=== PATIENT | male | born 1955 | race Caucasian/White ===

== ENCOUNTER 2019-01-26 23:46 | Inpatient (IN) | payer OTHER ==
[~2019-01-26] VITALS: Ht 170.2 cm; Wt 79.0 kg
[2019-01-27 02:05] VITALS: Ht 170.2 cm; Wt 79.0 kg
[2019-01-27 02:21] VITALS: BP 139/81; PULSE 112; RESP 19
[2019-01-27] MEDS ORDERED: CEFTRIAXONE 1 GM/50 ML (PMX) 50 ML IVPB SCH (02:30)
[2019-01-27] MEDS ORDERED: NACL 0.9% 3 ML SYG IV SCH (02:30)
[2019-01-27] MEDS ORDERED: ONDANSETRON (ODT) 4 MG TAB ODT PRN (03:00)
[2019-01-27] MEDS: ACETAMINOPHEN 325 MG TAB PO PRN ×2 (03:04→16:57)
[2019-01-27 07:44] VITALS: BP 144/88; PULSE 111; RESP 18
[2019-01-27] MEDS: FAMOTIDINE 20 MG TAB PO SCH ×2 (09:30→20:00)
[2019-01-27] MEDS: DOCUSATE SODIUM 100 MG CAP PO SCH ×2 (09:30→20:00)
[2019-01-27] MEDS: ENOXAPARIN 40 MG/0.4 ML SYG SC SCH (09:32)
[2019-01-27] MEDS ORDERED: NACL 3% FOR INHALATION 15 ML NEBU NEB ONE (13:30)
--- NOTE | 2019-01-27 13:45 | HP ---
DATE OF ADMISSION: 01/27/2019 CHIEF COMPLAINT: Fevers. HISTORY OF PRESENT ILLNESS: A 63-year-old male was transferred from [facility] Emergency [facility] om after he presented with complaint of persistent on and off fevers for 3 weeks. The patient christian busby was seen at [facility] and underwent a thorough workup several weeks prior to admi ssion. No source of infection was identified. He then saw his primary care provider and was diagnos ed with otitis. The patient was prescribed Augmentin. He experienced abdominal discomfort associate d with nausea. At [place] [facility], abdominal pelvic CT was unremarkable. However, the lung portion of the CAT scan sh owed right upper lobe atelectasis, dense infiltrates and hilar lymphadenopathy. There were no cavita ry lesions. The patient has travel history to [place] recently. He denies any weight loss. He rep orts mild cough which is nonproductive. His maximum temperature was 102.1. Labs revealed white bloo d cell count of 12.1. Basic metabolic panel was unremarkable. PAST MEDICAL HISTORY: Unremarkable. MEDICATIONS PRIOR TO ADMISSION: Augmentin. SOCIAL HISTORY: The patient lives at home. He denies tobacco and drinks alcohol on social occasions . PHYSICAL EXAMINATION: GENERAL: Well-developed, well-nourished male who is in no apparent distress. VITAL SIGNS: Blood pressure 144/88, temperature 99.5, maximum temperature 102.1, pulse 111. HEENT: Extraocular muscles are intact. Pupils are equal and reactive to light bilaterally. Sclerae are anicteric. Oropharynx is clear and moist. NECK: Supple. No JVD, no carotid bruits. LUNGS: Clear to auscultation bilaterally. CARDIAC: Regular rate and rhythm. No murmurs, rubs or gallops. ABDOMEN: Soft, nontender, nondistended, normoactive bowel sounds. EXTREMITIES: No clubbing, cyanosis or edema. NEUROLOGICAL: Grossly nonfocal. ASSESSMENT: 1. A 63-year-old male with history of on and off fevers for 3 weeks. 2. Right upper lobe dense infiltrate with hilar lymphadenopathy. 3. Rule out underlying lung mass with possible postoperative pneumonia. PLAN: 1. Place in med/surg observation. 2. Change to IV Levaquin 750 mg daily. 3. Pulmonary and ID consultations were requested. Dictated By: JOSE TENORIO/NTS Conf#: [id number] DID#: [id number] CC: PETER HINOJOSA MD; JOE MENDOZA MD;*[facility]*
[2019-01-27 14:00] VITALS: BP 124/74; PULSE 121; RESP 18
[2019-01-27] MEDS: SOD CHLORIDE 0.9% 1,000 ML IV SCH ×2 (14:24→22:00)
--- NOTE | 2019-01-27 14:26 | CONS ---
DATE OF ADMISSION: 01/27/2019 DATE OF CONSULTATION: TYPE OF CONSULTATION: Pulmonary. REASON FOR CONSULT: Abnormal chest x-ray. HISTORY OF PRESENT ILLNESS: This is a 63-year-old gentleman who has had a 3 to 4-week history of fev er, chills, cough, presented to outside facility where he had a CT of the chest demonstrated dense ri ght upper lobe infiltrate with lymphadenopathy. The patient denies any hemoptysis. No nausea, no vo miting. Denies any weight loss; however has had a significant travel history to various states and a broad to [place]. He works with service as an actor. He has a remote tobacco history, quit smoking 15 years ago. Prior to that, smoked 3 to 5 cigarettes per day. PAST MEDICAL HISTORY: As above. MEDICATIONS: Per chart. ALLERGIES: NONE. SOCIAL HISTORY: Ex-smoker, no alcohol, no history of drug use. FAMILY HISTORY: Noncontributory. SYSTEMS REVIEW: A 12-point review of systems was negative other than that mentioned above. PHYSICAL EXAMINATION: GENERAL: Well-nourished, well-developed gentleman, appears comfortable at rest, in no acute distress . VITAL SIGNS: Currently afebrile, pulse is 110, blood pressure 144/88, T-max was 102.1. NECK: Supple. No JVD or lymphadenopathy. CARDIAC: S1, S2. No added sounds or murmurs. CHEST: Diminished air entry in both bases. ABDOMEN: Soft, nontender. No guarding or rebound. EXTREMITIES: No cyanosis, clubbing. A 1+ edema. NEUROLOGIC: Generalized weakness. LABORATORY DATA: White count 12.1, hemoglobin 12.4, platelets of 383. BUN 13, creatinine 1.13. IMPRESSION AND PLAN: Three-week history of fever, chills and cough with dense right upper lobe infil trate concerning for either complex or atypical right upper lobe community-acquired pneumonia and/or mycobacterial tuberculosis. Differential does include adenocarcinoma, specifically bronchoalveolar. I will recommend: 1. Sputum AFB x3. 2. High resolution CT scan. 3. QuantiFERON Gold. 4. Broad-spectrum antibiotics. 5. DVT and GI prophylaxis. 6. If no improvement, we will require bronchoscopy with biopsies. Dictated By: JOE GIORDANO/TASH Conf#: [id number] DID#: [id number] CC: PETER HINOJOSA MD;*[facility]*
[2019-01-27] MEDS: LEVOFLOXACIN 750MG/D5W (PMX) 150 ML IVPB SCH (14:31)
[2019-01-27] MEDS ORDERED: SOD CHLORIDE 0.9% 1,000 ML IV ONE (18:00)
--- NOTE | 2019-01-27 19:06 | CONS ---
DATE OF ADMISSION: 01/27/2019 DATE OF CONSULTATION: 01/27/2019 TYPE OF CONSULTATION: Infectious disease. REASON FOR CONSULTATION: Antibiotic management. HISTORY OF PRESENT ILLNESS: Leo Sosa is a 63-year-old male who was transferred from [facility] Emergency Room where he presented with persistent intermittent fevers for the last 3 weeks. The patient was seen at [facility] several weeks prior to admission. He was diagnosed by [facility] primary doctor with otitis, was prescribed Augmentin. At [facility], an abdominal pelvic CT was done; however, the lung portion of the CT scan showed right upper lobe atelectasis with dense infilt ration and hilar lymphadenopathy. There were no cavitary lesions. He has had a travel history to [facility] recently. Maximum temperature was 102.1. White count was 12.1. The patient was also seen by Dr. Campos. He notes that he had a significant travel history to various states ____ to [place]. 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 He does not smoke but 15 years ago when he quit was smoki ng 3 to 5 cigarettes per day. PAST MEDICAL HISTORY: Operations none. FAMILY HISTORY: Noncontributory. SOCIAL HISTORY: Does not smoke, drink or abuse drugs. ALLERGIES: NONE TO PENICILLIN, SULFA OR FOODS. MEDICATIONS: Per chart. REVIEW OF SYSTEMS: As per HPI. PHYSICAL EXAMINATION: GENERAL: The patient is a well-developed, well-nourished male, alert, responsive, in no acute distre ss. VITAL SIGNS: Stable. T-max 102.1. SKIN: Without generalized rash. HEENT: Within normal limits. NECK: Supple. LYMPH NODES: None palpable. CHEST: Decreased breath sounds at the bases. HEART: Without murmur or gallop. ABDOMEN: Soft, nontender, without organosplenomegaly or masses. EXTREMITIES: Without cyanosis, clubbing, or edema. RECTAL AND GENITAL: Deferred. NEUROLOGIC: No focal neurological abnormalities. ANCILLARY LABORATORY DATA: Shows a white count of 12.1, hemoglobin 12.4, platelets 383,000. BUN and creatinine 13/1.3. As noted, the CT scan showed dense right upper lobe infiltrate with lymphadenopa thy. Differential includes either an atypical right upper lobe community-acquired pneumonia, possibly myco bacterial infection, possible adenocarcinoma. The patient requires QuantiFERON Gold serology, sputum for AFB x3, a high resolution CT scan, all of which have been ordered. Also placed on broad spectru m antibiotics. If no improvement, then bronchoscopy would be in order. The patient was started at t his point on Levaquin. He did receive some ceftriaxone. We will continue Levaquin for the time lubna campbell, but I will consider broadening his antibiotic therapy, possibly putting him on Zosyn or possibly c efepime. I will dictate my findings to ____ and Dr. Campos. Dictated By: ELDON CAMARA MD, JD/TASH Conf#: [id number] DID#: [id number]
[2019-01-27 20:00] VITALS: BP 92/75; PULSE 96; RESP 18
[2019-01-27 21:35] VITALS: BP 103/66; PULSE 86
[2019-01-28] MEDS: ACETAMINOPHEN 325 MG TAB PO PRN ×3 (01:53→23:15)
[2019-01-28 01:56] VITALS: BP 135/87; PULSE 111; RESP 22
[2019-01-28] MEDS: SOD CHLORIDE 0.9% 1,000 ML IV SCH ×2 (05:25→17:03)
[2019-01-28 07:23] VITALS: BP 127/93; PULSE 94; RESP 20
[2019-01-28] MEDS: FAMOTIDINE 20 MG TAB PO SCH ×2 (08:46→20:07)
[2019-01-28] MEDS: DOCUSATE SODIUM 100 MG CAP PO SCH ×2 (08:46→20:07)
[2019-01-28] MEDS: ENOXAPARIN 40 MG/0.4 ML SYG SC SCH (08:52)
--- NOTE | 2019-01-28 08:57 | PN ---
Date/Time of Note Date/Time of Note DATE: 01/28/19 TIME: 08:51 Subjective Doing well. No complaints of chest pain or shortness of breath. Mild cough Objective Vitals Vital Signs Date Temp Pulse Resp B/P (MAP) Pulse Ox O2 O2 Flow FiO2 Time Delivery Rate 01/28/19 98.8 94 20 127/93 96 Room Air 07:23 (104) 01/27/19 21 18:04 Intake and Output 01/27/19 01/27/19 01/28/19 1515:00 23:00 07:00 IntakeIntake Total 560 ml 2270 ml 900 ml BalanceBalance 560 ml 2270 ml 900 ml Right-sided rhonchi Regular rate and rhythm Soft nontender nondistended normoactive bowel sounds No edema Nonfocal Results Result Diagram: 01/27/1952101/27/19521 Medications Medications Current Medications IV Flush (NS 3 ml) 3 ml PER PROTOCOL IV ; Start 01/27/19 at 02:30 Famotidine (Pepcid) 20 mg BID PO Last administered on 01/27/19at 20:00; Admin Dose 20 MG; Start 01/27/19 at 09:00 Enoxaparin Sodium (Lovenox) 40 mg DAILY SC Last administered on 01/27/19 09:32; Admin Dose 40 MG; Start 01/27/19 at 09:00 Acetaminophen (Tylenol Tab) 650 mg Q6H PRN PO MILD PAIN(1-3)OR ELEVATED TEMP Last administered on 01/28/19 01:53; Admin Dose 650 MG; Start 01/27/19 at 03:00 Docusate Sodium (Colace) 100 mg BID PO Last administered on 01/27/19at 20:00; Admin Dose 100 MG; Start 01/27/19 at 09:00 Ondansetron HCl (Zofran Odt) 4 mg Q6H PRN ODT nausea; Start 01/27/19 at 03:00 Levofloxacin/ Dextrose 150 ml @ 100 mls/hr Q24H IVPB Last administered on 01/27/19 14:31; Admin Dose 100 MLS/HR; Start 01/27/19 at 12:00 Sodium Chloride 1,000 ml @ 100 mls/hr Q10H IV Last administered on 01/28/19 05:25; Admin Dose 100 MLS/HR; Start 01/27/19 at 12:00 Sodium Chloride (Nacl 3% For Inhalation) 5 ml ONCE ONCE NEB ; Start 01/28/19 at 09:00; Stop 01/28/19 at 09:01 Sodium Chloride (Nacl 3% For Inhalation) 5 ml ONCE ONCE NEB ; Start 01/28/19 at 21:00; Stop 01/28/19 at 21:01 VTE Prophylaxis Risk score (from [facility])>0 risk: 2 SCD applied (from [facility]): Yes Lines/Catheters IV Catheter Type: Saline Lock Grier in Place: No Assessment/Plan Assessment/Plan 63-year-old male with right upper lobe pneumonia Rule out TB versus other atypical infections Continue IV Levaquin Sputum for AFB Pulmonary and ID follow-up Continue respiratory isolation JOSE RAY MD January 28, 2019 08:57
[2019-01-28] MEDS ORDERED: NACL 3% FOR INHALATION 15 ML NEBU NEB ONE ×2 (09:00→21:00)
[2019-01-28] MEDS: LEVOFLOXACIN 750MG/D5W (PMX) 150 ML IVPB SCH (12:22)
[2019-01-28] MEDS: LACTULOSE 30ML CUP PO SCH (12:22)
[2019-01-28 13:45] VITALS: BP 155/81; PULSE 112; RESP 20
--- NOTE | 2019-01-28 15:29 | CONS ---
Assessment/Plan Assessment/Plan Hospital Course (Demo Recall) No acute events overnight patient continues to have fevers with a T-max of 101.7 WBC today 11.2 platelets 430 neutrophils 64.2 BUN 13 creatinine 0.99 Microbiology: Sputum culture pending Chest CT yesterday revealed dense consolidation in the anterior right upper lobe keeping with lobar pneumonia. Please see full report in the chart Physical examination: This is a well-developed ill-appearing elderly - [place] man who is awake in no distress. Head atraumatic normocephalic neck is supple chest rise symmetrical breath sounds diminished bases heart S1-S2 abdomen soft bowel sounds present extremities without cyanosis Assessment: 1. Sepsis with ongoing fevers 2. Right upper lobe pneumonia Plan: We are going to add vancomycin and meropenem to the regimen, send blood cultures, swab nares for MRSA and await for final work-up, pending AFB smears and QuantiFERON, follow pulmonary recommendations Consultation Date/Type/Reason Admit Date/Time January 28, 2019 at 09:44 Initial Consult Date Type of Consult id Date/Time of Note DATE: 01/28/19 TIME: 15:29 Exam/Review of Systems Exam Vitals Vital Signs Date Temp Pulse Resp B/P (MAP) Pulse Ox O2 O2 Flow FiO2 Time Delivery Rate 01/28/19 100.7 14:32 01/28/19 112 20 155/81 98 Room Air 13:45 (105) 01/27/19 21 18:04 Intake and Output 01/27/19 01/27/19 01/28/19 1515:00 23:00 07:00 IntakeIntake Total 560 ml 2270 ml 900 ml BalanceBalance 560 ml 2270 ml 900 ml Results Result Diagram: 01/28/19 1000 01/28/19 1000 Results 24hrs Laboratory Tests Test 01/28/19 10:00 White Blood Count 11.2 H Red Blood Count 4.92 Hemoglobin 12.1 L Hematocrit 37.9 L Mean Corpuscular Volume 77.0 L Mean Corpuscular Hemoglobin 24.6 L Mean Corpuscular Hemoglobin Concent 31.9 L Red Cell Distribution Width 14.5 Platelet Count 430 H Mean Platelet Volume 10.4 Immature Granulocytes % 1.400 H Neutrophils % 64.2 Lymphocytes % 12.4 L Monocytes % 9.2 Eosinophils % 12.4 H Basophils % 0.4 Nucleated Red Blood Cells % 0.0 Immature Granulocytes # 0.160 H Neutrophils # 7.2 Lymphocytes # 1.4 Monocytes # 1.0 H Eosinophils # 1.4 H Basophils # 0.1 Nucleated Red Blood Cells # 0.0 Sodium Level 139 Potassium Level 4.0 Chloride Level 106 Carbon Dioxide Level 24 Anion Gap 9 Blood Urea Nitrogen 13 Creatinine 0.99 Est Glomerular Filtrat Rate mL/min > 60 Glucose Level 134 Calcium Level 8.4 Medications Medication Current Medications IV Flush (NS 3 ml) 3 ml PER PROTOCOL IV ; Start 01/27/19 at 02:30 Famotidine (Pepcid) 20 mg BID PO Last administered on 01/28/19 08:46; Admin Dose 20 MG; Start 01/27/19 at 09:00 Enoxaparin Sodium (Lovenox) 40 mg DAILY SC Last administered on 01/28/19 08:52; Admin Dose 40 MG; Start 01/27/19 at 09:00 Acetaminophen (Tylenol Tab) 650 mg Q6H PRN PO MILD PAIN(1-3)OR ELEVATED TEMP Last administered on 01/28/19 13:43; Admin Dose 650 MG; Start 01/27/19 at 03:00 Docusate Sodium (Colace) 100 mg BID PO Last administered on 01/28/19 08:46; Admin Dose 100 MG; Start 01/27/19 at 09:00 Ondansetron HCl (Zofran Odt) 4 mg Q6H PRN ODT nausea; Start 01/27/19 at 03:00 Levofloxacin/ Dextrose 150 ml @ 100 mls/hr Q24H IVPB Last administered on 01/28/19 12:22; Admin Dose 100 MLS/HR; Start 01/27/19 at 12:00 Sodium Chloride 1,000 ml @ 100 mls/hr Q10H IV Last administered on 01/28/19 05:25; Admin Dose 100 MLS/HR; Start 01/27/19 at 12:00 Sodium Chloride (Nacl 3% For Inhalation) 5 ml ONCE ONCE NEB ; Start 01/28/19 at 21:00; Stop 01/28/19 at 21:01 Lactulose (Enulose) 20 gm DAILY PO Last administered on 01/28/19 12:22; Admin Dose 20 GM; Start 01/28/19 at 11:00 Meropenem/Sodium Chloride 50 ml @ 100 mls/hr Q8 IVPB ; Start 01/28/19 at 15:30; Status UNV Vancomycin HCl (Vanco Iv Per Pharmacy) VANCOMYCIN PER PHARMACY PER PROTOCOL XX ; Start 01/28/19 at 15:30; Status UNV KAYODE RAPP NP January 28, 2019 15:29
[2019-01-28] MEDS ORDERED: VANCOMYCIN IV PER PHARMACY XX SCH (15:30)
--- NOTE | 2019-01-28 16:02 | PN ---
Date/Time of Note Date/Time of Note DATE: 01/28/19 TIME: 15:54 Subjective Doing fairly. Still fevers. Slight cough, not much sputum. No pain. Objective Vitals Vital Signs Date Temp Pulse Resp B/P (MAP) Pulse Ox O2 O2 Flow FiO2 Time Delivery Rate 01/28/19 100.7 14:32 01/28/19 112 20 155/81 98 Room Air 13:45 (105) 01/27/19 21 18:04 Intake and Output 01/27/19 01/27/19 01/28/19 1515:00 23:00 07:00 IntakeIntake Total 560 ml 2270 ml 900 ml BalanceBalance 560 ml 2270 ml 900 ml GENERAL: Well-nourished, well-developed gentleman, appears comfortable at rest, in no acute distress. NECK: Supple. No JVD or lymphadenopathy. CARDIAC: S1, S2. No added sounds or murmurs. CHEST: Diminished air entry in both bases. Fairly clear. ABDOMEN: Soft, nontender. No guarding or rebound. EXTREMITIES: No cyanosis, clubbing. trace edema. NEUROLOGIC: alert.. Results Result Diagram: 01/28/19 1000 01/28/[address] Thorax: 01/27: IMPRESSION: 1. Dense consolidation in the anterior right upper lobe is in keeping with lobar pneumonia. Negative for evidence of a centrally obstructing mass. However, there is bulky lymphadenopathy in the mediastinum and right hilum that may be seen with malignancy. Evaluation is limited without intravenous contrast. Suggest further evaluation with bronchoscopy and biopsy. 2. Multi focal nodularity with tree in bud branching structures throughout both lungs is in keeping with mild multifocal bronchiolitis/bronchopneumonia. 3. Please note that in the absence of intravenous contrast, the study does not evaluate the patency of the vasculature. Medications Medications Current Medications IV Flush (NS 3 ml) 3 ml PER PROTOCOL IV ; Start 01/27/19 at 02:30 Famotidine (Pepcid) 20 mg BID PO Last administered on 01/28/19at 08:46; Admin Dose 20 MG; Start 01/27/19 at 09:00 Enoxaparin Sodium (Lovenox) 40 mg DAILY SC Last administered on 01/28/19at 08:52; Admin Dose 40 MG; Start 01/27/19 at 09:00 Acetaminophen (Tylenol Tab) 650 mg Q6H PRN PO MILD PAIN(1-3)OR ELEVATED TEMP Last administered on 01/28/19at 13:43; Admin Dose 650 MG; Start 01/27/19 at 03:00 Docusate Sodium (Colace) 100 mg BID PO Last administered on 01/28/19at 08:46; Admin Dose 100 MG; Start 01/27/19 at 09:00 Ondansetron HCl (Zofran Odt) 4 mg Q6H PRN ODT nausea; Start 01/27/19 at 03:00 Levofloxacin/ Dextrose 150 ml @ 100 mls/hr Q24H IVPB Last administered on 01/28/19at 12:22; Admin Dose 100 MLS/HR; Start 01/27/19 at 12:00 Sodium Chloride 1,000 ml @ 100 mls/hr Q10H IV Last administered on 01/28/19at 05:25; Admin Dose 100 MLS/HR; Start 01/27/19 at 12:00 Sodium Chloride (Nacl 3% For Inhalation) 5 ml ONCE ONCE NEB ; Start 01/28/19 at 21:00; Stop 01/28/19 at 21:01 Lactulose (Enulose) 20 gm DAILY PO Last administered on 01/28/19at 12:22; Admin Dose 20 GM; Start 01/28/19 at 11:00 Meropenem/Sodium Chloride 50 ml @ 100 mls/hr Q8 IVPB ; Start 01/28/19 at 15:30 Vancomycin HCl (Vanco Iv Per Pharmacy) VANCOMYCIN PER PHARMACY PER PROTOCOL XX ; Start 01/28/19 at 15:30; Status UNV VTE Prophylaxis Risk score (from Ns)>0 risk: 2 SCD applied (from Ns): Yes Lines/Catheters IV Catheter Type: Peripheral IV Grier in Place: No Assessment/Plan Assessment/Plan Fever RUL infiltrate: pneumonia, r/o Tbc, tumor, etc. Plan: Sputum AFB x3. Collections in progress. QuantiFERON Gold. Broad-spectrum antibiotics. Per ID DVT and GI prophylaxis. If no improvement, we will require bronchoscopy with biopsies. D/w patient and family. D/w staff. EFREN MODI MD January 28, 2019 16:02
[2019-01-28] MEDS ORDERED: VANCOMYCIN HCL 1.5 GM in SOD CHLORIDE 0.9% 250 ML IVPB SCH (17:00)
[2019-01-28] MEDS: MEROPENEM 1 GM/50ML(PMX) 50 ML IVPB SCH (17:03)
[2019-01-28 19:47] VITALS: BP 120/75; PULSE 105; RESP 20
[2019-01-29] MEDS: MEROPENEM 1 GM/50ML(PMX) 50 ML IVPB SCH ×4 (00:04→21:00)
[2019-01-29 02:35] VITALS: BP 108/70; PULSE 95; RESP 18
[2019-01-29] MEDS: SOD CHLORIDE 0.9% 1,000 ML IV SCH ×2 (04:00→14:47)
[2019-01-29] MEDS ORDERED: VANCOMYCIN 1 GM 250 ML IVPB SCH (05:00)
[2019-01-29] MEDS: VANCOMYCIN 1 GM 250 ML IVPB SCH ×2 (06:40→17:43)
[2019-01-29 07:46] VITALS: BP 127/82; PULSE 94; RESP 16
[2019-01-29] MEDS: LACTULOSE 30ML CUP PO SCH (09:28)
[2019-01-29] MEDS: DOCUSATE SODIUM 100 MG CAP PO SCH ×2 (09:29→20:56)
[2019-01-29] MEDS: FAMOTIDINE 20 MG TAB PO SCH ×2 (09:30→20:57)
[2019-01-29] MEDS: ENOXAPARIN 40 MG/0.4 ML SYG SC SCH (09:32)
[2019-01-29] MEDS: ACETAMINOPHEN 325 MG TAB PO PRN ×2 (12:50→20:57)
[2019-01-29] MEDS: LEVOFLOXACIN 750MG/D5W (PMX) 150 ML IVPB SCH (12:50)
--- NOTE | 2019-01-29 13:15 | PN ---
Date/Time of Note Date/Time of Note DATE: 01/29/19 TIME: 13:13 Assessment/Plan VTE Prophylaxis Risk score (from Ns)>0 risk: 2 SCD applied (from Ns): No SCD contraindicated: other (lmwh) Pharmacological prophylaxis: LMWH Lines/Catheters IV Catheter Type (from Nrs): Peripheral IV Urinary Cath still in place: No Assessment/Plan Assessment/Plan 1. pulm: itermittant fever, likely related to LRTI (b) RUL dense consolidation consistent wth lbar pna, ?superinfection, cont current abx (c) tree and bud apearance suggestive of chronic infection? apppreciate pulm an d ID (d) neg quantiferon Result Diagram: 01/28/19 1000 01/28/19 1000 Subjective 24 Hr Interval Summary Free Text/Dictation no complaints had low gradae fever earlier eating ok mo pain Exam/Review of Systems Exam Vitals Vital Signs Date Temp Pulse Resp B/P (MAP) Pulse Ox O2 O2 Flow FiO2 Time Delivery Rate 01/29/19 100.1 12:50 01/29/19 94 16 127/82 94 Room Air 07:46 (97) 01/27/19 21 18:04 Intake and Output 01/28/19 01/28/19 01/29/19 1515:00 23:00 07:00 IntakeIntake Total 950 ml 1250 ml 350 ml OutputOutput Total 1150 ml 1675 ml 750 ml BalanceBalance -200 ml -425 ml -400 ml Exam nad, ctab, rrr Medications Medication Current Medications IV Flush (NS 3 ml) 3 ml PER PROTOCOL IV ; Start 01/27/19 at 02:30 Famotidine (Pepcid) 20 mg BID PO Last administered on 01/29/19at 09:30; Admin Dose 20 MG; Start 01/27/19 at 09:00 Enoxaparin Sodium (Lovenox) 40 mg DAILY SC Last administered on 01/29/19at 09:32; Admin Dose 40 MG; Start 01/27/19 at 09:00 Acetaminophen (Tylenol Tab) 650 mg Q6H PRN PO MILD PAIN(1-3)OR ELEVATED TEMP Last administered on 01/29/19at 12:50; Admin Dose 650 MG; Start 01/27/19 at 03:00 Docusate Sodium (Colace) 100 mg BID PO Last administered on 01/29/19 09:29; Admin Dose 100 MG; Start 01/27/19 at 09:00 Ondansetron HCl (Zofran Odt) 4 mg Q6H PRN ODT nausea; Start 01/27/19 at 03:00 Levofloxacin/ Dextrose 150 ml @ 100 mls/hr Q24H IVPB Last administered on 01/29/19 12:50; Admin Dose 100 MLS/HR; Start 01/27/19 at 12:00 Sodium Chloride 1,000 ml @ 100 mls/hr Q10H IV Last administered on 01/28/19at 17:03; Admin Dose 100 MLS/HR; Start 01/27/19 at 12:00 Lactulose (Enulose) 20 gm DAILY PO Last administered on 01/29/19 09:28; Admin Dose 20 GM; Start 01/28/19 at 11:00 Meropenem/Sodium Chloride 50 ml @ 100 mls/hr Q8 IVPB Last administered on 08/09at 05:58; Admin Dose 100 MLS/HR; Start 01/28/19 at 15:30 Vancomycin HCl (Vanco Iv Per Pharmacy) VANCOMYCIN PER PHARMACY PER PROTOCOL XX ; Start 01/28/19 at 15:30 Vancomycin HCl 250 ml @ 125 mls/hr Q12H IVPB Last administered on 01/29/19 06:40; Admin Dose 125 MLS/HR; Start 01/29/19 at 06:00 Miscellaneous Information (*Rx Drug Level Order Reminder*) 1 0500 ONCE XX ; Start 01/30/19 at 05:00; Stop 01/30/19 at 05:01 EDGAR LEI MD January 29, 2019 13:15
--- NOTE | 2019-01-29 16:47 | CONS ---
Consult Date/Type/Reason Admit Date/Time January 28, 2019 at 09:44 Initial Consult Date Type of Consultation: Pulm Date/Time of Note DATE: 01/29/19 TIME: 16:[address] reviewed. Objective Vitals Vital Signs Date Temp Pulse Resp B/P (MAP) Pulse Ox O2 O2 Flow FiO2 Time Delivery Rate 01/29/19 100.1 12:50 01/29/19 94 16 127/82 94 Room Air 07:46 (97) 01/27/19 21 18:04 Intake and Output 01/28/19 01/28/19 01/29/19 1515:00 23:00 07:00 IntakeIntake Total 950 ml 1250 ml 350 ml OutputOutput Total 1150 ml 1675 ml 750 ml BalanceBalance -200 ml -425 ml -400 ml Exam HEENT: Neck supple; no JVD; no LAD CVS: RRR, S1 and S2 CHEST: + egophony right upper lung field anteriorly ABD: Soft, NT, + BS EXT: No c/c/e Results/Medications Result Diagram: 01/28/19 1000 01/28/19 1000 Home Meds Discontinued Reported Medications Amoxicillin/Potassium Clav (Amox-Clav 875-125 mg Tablet) 875-125 mg Tab, 1 TAB PO BID, #20 TAB 01/27/19 Medications Current Medications IV Flush (NS 3 ml) 3 ml PER PROTOCOL IV ; Start 01/27/19 at 02:30 Famotidine (Pepcid) 20 mg BID PO Last administered on 01/29/19at 09:30; Admin Dose 20 MG; Start 01/27/19 at 09:00 Enoxaparin Sodium (Lovenox) 40 mg DAILY SC Last administered on 01/29/19at 09:32; Admin Dose 40 MG; Start 01/27/19 at 09:00 Acetaminophen (Tylenol Tab) 650 mg Q6H PRN PO MILD PAIN(1-3)OR ELEVATED TEMP Last administered on 01/29/19at 12:50; Admin Dose 650 MG; Start 01/27/19 at 03:00 Docusate Sodium (Colace) 100 mg BID PO Last administered on 01/29/19at 09:29; Admin Dose 100 MG; Start 01/27/19 at 09:00 Ondansetron HCl (Zofran Odt) 4 mg Q6H PRN ODT nausea; Start 01/27/19 at 03:00 Levofloxacin/ Dextrose 150 ml @ 100 mls/hr Q24H IVPB Last administered on 01/29/19at 12:50; Admin Dose 100 MLS/HR; Start 01/27/19 at 12:00 Sodium Chloride 1,000 ml @ 100 mls/hr Q10H IV Last administered on 01/29/19at 14:47; Admin Dose 100 MLS/HR; Start 01/27/19 at 12:00 Lactulose (Enulose) 20 gm DAILY PO Last administered on 01/29/19at 09:28; Admin Dose 20 GM; Start 01/28/19 at 11:00 Meropenem/Sodium Chloride 50 ml @ 100 mls/hr Q8 IVPB Last administered on 01/29/19at 14:47; Admin Dose 100 MLS/HR; Start 01/28/19 at 15:30 Vancomycin HCl (Vanco Iv Per Pharmacy) VANCOMYCIN PER PHARMACY PER PROTOCOL XX ; Start 01/28/19 at 15:30 Vancomycin HCl 250 ml @ 125 mls/hr Q12H IVPB Last administered on 01/29/19at 06:40; Admin Dose 125 MLS/HR; Start 01/29/19 at 06:00 Miscellaneous Information (*Rx Drug Level Order Reminder*) 1 0500 ONCE XX ; Start 01/30/19 at 05:00; Stop 01/30/19 at 05:01 Assessment/Plan Assessment/Plan (Daily) IMP: 1. RUL pneumonia--concerning for post-obstructive process 2. RUL mass-like density and mediastinal adenopathy--concerning for bronchogenic cancer RECS: 1. Continue abx per ID 2. F/U AFB 3. Would perform bronchoscopy with Bx/TBNA 4. CT with IV contrast may be of added value YAJAIRA FITZGERALD MD January 29, 2019 16:47
--- NOTE | 2019-01-29 18:05 | CONS ---
Assessment/Plan Assessment/Plan Hospital Course (Demo Recall) ID PROGRESS NOTE CURRENT ABX: DAY #=>Vanco IV + Merrem + Levaquin 01/28/19 1000 01/28/19 1000 24H INTERVAL SUMMARY * Defervescing nicely -- Tmax down today * Patient with PNA -- in isolation for r/o TB -- QTFG is (-) which does not screen for ALL ATYPICAL MYOBACTERIUM-- Respiratory Cx x3 on order; however not placed as AFB cx and smear x3 hence lab has not checked AFB smears -- RN Called lab -- they will attempt to perform AFB smears on sputum already sent down to lab -- I placed appropriate order for AFB Smears & Cx x3 IMAGING * Chest CT revealed dense consolidation in the anterior right upper lobe keeping with lobar pneumonia. Please see full report in the chart MICRO/OTHER * QTF GOLD IS NEGATIVE * 01/28/19 RESP CX: Louis: 01/28/19-2155 Rcvd: 01/28/19-2213 Source: SPUTUM Sp Descrip: GRAM STAIN Final POLYMORPH. LEUKOCYTE 1+ EPITHELIAL CELLS 1+ GRAM POS COCCI IN PAIRS 1+ * 01/27/19 RESP CX: Louis: 01/27/19-2249 Rcvd: 01/27/19-2347 Source: SPUTUM Sp Descrip: GRAM STAIN Final POLYMORPH. LEUKOCYTE RARE . NO ORGANISM SEEN RESPIRATORY CULTURE Preliminary Organism 1 NORMAL RESPIRATORY HAI QUANTITY 2+ PHYSICAL EXAMINATION: GENERAL: VSS, NAD HEENT: AT, NC NECK: WNL CHEST: Equal chest rise bilaterally without dyspnea on observation EXTREMITIES: Warm, dry SKIN: No rash, no diaphoresis ID ASSESSMENT 63 yo M admit with: 1. Sepsis with ongoing fevers, leukocytosis 2. Right upper lobe pneumonia * r/o Atypical Myobacterium * QTF GOLD IS NEGATIVE 3. CT finding of bulky lymphadenopathy in the mediastinum and right hilum that may be seen with malignancy. * Suggest further evaluation with bronchoscopy and biopsy per radiologist report. ABX ALLERGIES: KNDA INVASIVES: PICC RUEXT CURRENT ABX: DAY # =>Vanco IV + Merrem + Levaquin ID RECOMMENDATIONS/PLAN: 1. Check MRSA NARES 2. Check Myoplasma bacterial AG, send cocci 3. Continue current IV ABX 4. Await clinical and radiographic improvement . Consultation Date/Type/Reason Admit Date/Time January 28, 2019 at 09:44 Initial Consult Date Date/Time of Note DATE: 01/29/19 TIME: 17:44 Exam/Review of Systems Exam Vitals Vital Signs Date Temp Pulse Resp B/P (MAP) Pulse Ox O2 O2 Flow FiO2 Time Delivery Rate 01/29/19 100.0 17:24 01/29/19 94 16 127/82 94 Room Air 07:46 (97) 01/27/19 21 18:04 Intake and Output 01/28/19 01/28/19 01/29/19 1515:00 23:00 07:00 IntakeIntake Total 950 ml 1250 ml 350 ml OutputOutput Total 1150 ml 1675 ml 750 ml BalanceBalance -200 ml -425 ml -400 ml Results Result Diagram: 01/28/19 1000 01/28/19 1000 Medications Medication Current Medications IV Flush (NS 3 ml) 3 ml PER PROTOCOL IV ; Start 01/27/19 at 02:30 Famotidine (Pepcid) 20 mg BID PO Last administered on 01/29/19at 09:30; Admin Dose 20 MG; Start 01/27/19 at 09:00 Enoxaparin Sodium (Lovenox) 40 mg DAILY SC Last administered on 01/29/19at 09:32; Admin Dose 40 MG; Start 01/27/19 at 09:00 Acetaminophen (Tylenol Tab) 650 mg Q6H PRN PO MILD PAIN(1-3)OR ELEVATED TEMP Last administered on 01/29/19at 12:50; Admin Dose 650 MG; Start 01/27/19 at 03:00 Docusate Sodium (Colace) 100 mg BID PO Last administered on 01/29/19at 09:29; Admin Dose 100 MG; Start 01/27/19 at 09:00 Ondansetron HCl (Zofran Odt) 4 mg Q6H PRN ODT nausea; Start 01/27/19 at 03:00 Levofloxacin/ Dextrose 150 ml @ 100 mls/hr Q24H IVPB Last administered on 01/29/19at 12:50; Admin Dose 100 MLS/HR; Start 01/27/19 at 12:00 Sodium Chloride 1,000 ml @ 100 mls/hr Q10H IV Last administered on 01/29/19at 14:47; Admin Dose 100 MLS/HR; Start 01/27/19 at 12:00 Lactulose (Enulose) 20 gm DAILY PO Last administered on 01/29/19at 09:28; Admin Dose 20 GM; Start 01/28/19 at 11:00 Meropenem/Sodium Chloride 50 ml @ 100 mls/hr Q8 IVPB Last administered on 01/29/19at 14:47; Admin Dose 100 MLS/HR; Start 01/28/19 at 15:30 Vancomycin HCl (Vanco Iv Per Pharmacy) VANCOMYCIN PER PHARMACY PER PROTOCOL XX ; Start 01/28/19 at 15:30 Vancomycin HCl 250 ml @ 125 mls/hr Q12H IVPB Last administered on 01/29/19at 06:40; Admin Dose 125 MLS/HR; Start 01/29/19 at 06:00 Miscellaneous Information (*Rx Drug Level Order Reminder*) 1 0500 ONCE XX ; Start 01/30/19 at 05:00; Stop 01/30/19 at 05:01 HAM PICKERING NP January 29, 2019 17:54
[2019-01-29 20:15] VITALS: BP 147/90; PULSE 113; RESP 18
[2019-01-30 02:32] VITALS: BP 126/89; PULSE 101; RESP 18
[2019-01-30] MEDS: SOD CHLORIDE 0.9% 1,000 ML IV SCH ×2 (04:44)
[2019-01-30] MEDS: MEROPENEM 1 GM/50ML(PMX) 50 ML IVPB SCH ×3 (05:02→21:36)
[2019-01-30 07:56] VITALS: BP 129/84; PULSE 104; RESP 15
[2019-01-30] MEDS: ACETAMINOPHEN 325 MG TAB PO PRN ×2 (08:24→18:46)
[2019-01-30] MEDS: DOCUSATE SODIUM 100 MG CAP PO SCH ×2 (08:24→21:32)
[2019-01-30] MEDS: FAMOTIDINE 20 MG TAB PO SCH ×2 (08:24→21:32)
[2019-01-30] MEDS: ENOXAPARIN 40 MG/0.4 ML SYG SC SCH (08:26)
[2019-01-30] MEDS: LACTULOSE 30ML CUP PO SCH (08:26)
[2019-01-30] MEDS: VANCOMYCIN 1 GM 250 ML IVPB SCH (08:59)
--- NOTE | 2019-01-30 11:25 | PN ---
Date/Time of Note Date/Time of Note DATE: 01/30/19 TIME: 11:24 Assessment/Plan VTE Prophylaxis Risk score (from Ns)>0 risk: 3 SCD applied (from Ns): No SCD contraindicated: low risk/ambulating Pharmacological prophylaxis: LMWH Lines/Catheters IV Catheter Type (from Nrs): Peripheral IV Urinary Cath still in place: No Assessment/Plan Assessment/Plan pulm: still with low grade fever, min improement in wbc, cont current, await pulm deision re: bronchoscopy for possible malignancy? Result Diagram: 01/30/1914 01/30/1914 Results 24hrs Laboratory Tests Test 01/30/19 05:14 White Blood Count 10.9 H Red Blood Count 5.14 Hemoglobin 12.4 L Hematocrit 39.5 L Mean Corpuscular Volume 76.8 L Mean Corpuscular Hemoglobin 24.1 L Mean Corpuscular Hemoglobin Concent 31.4 L Red Cell Distribution Width 14.5 Platelet Count 430 H Mean Platelet Volume 10.6 H Immature Granulocytes % 1.300 H Neutrophils % 57.5 Lymphocytes % 14.4 L Monocytes % 10.8 Eosinophils % 15.0 H Basophils % 1.0 Nucleated Red Blood Cells % 0.0 Immature Granulocytes # 0.140 H Neutrophils # 6.3 Lymphocytes # 1.6 Monocytes # 1.2 H Eosinophils # 1.6 H Basophils # 0.1 Nucleated Red Blood Cells # 0.0 Sodium Level 140 Potassium Level 4.4 Chloride Level 107 Carbon Dioxide Level 25 Anion Gap 8 Blood Urea Nitrogen 12 Creatinine 1.03 Est Glomerular Filtrat Rate mL/min > 60 Glucose Level 118 Calcium Level 8.4 Vancomycin Level Trough 11.2 Subjective 24 Hr Interval Summary Free Text/Dictation no complaint, no sob, no cough ambulating adn eating well Exam/Review of Systems Exam Vitals Vital Signs Date Temp Pulse Resp B/P (MAP) Pulse Ox O2 O2 Flow FiO2 Time Delivery Rate 01/30/19 98.0 09:09 01/30/19 104 15 129/84 97 Room Air 07:56 (99) 01/27/19 21 18:04 Intake and Output 01/29/19 01/29/19 01/30/19 1515:00 23:00 07:00 IntakeIntake Total 350 ml 985 ml 750 ml BalanceBalance 350 ml 985 ml 750 ml Exam nad, ctab, rrr Results Results 24hrs Laboratory Tests Test 01/30/19 05:14 White Blood Count 10.9 H Red Blood Count 5.14 Hemoglobin 12.4 L Hematocrit 39.5 L Mean Corpuscular Volume 76.8 L Mean Corpuscular Hemoglobin 24.1 L Mean Corpuscular Hemoglobin Concent 31.4 L Red Cell Distribution Width 14.5 Platelet Count 430 H Mean Platelet Volume 10.6 H Immature Granulocytes % 1.300 H Neutrophils % 57.5 Lymphocytes % 14.4 L Monocytes % 10.8 Eosinophils % 15.0 H Basophils % 1.0 Nucleated Red Blood Cells % 0.0 Immature Granulocytes # 0.140 H Neutrophils # 6.3 Lymphocytes # 1.6 Monocytes # 1.2 H Eosinophils # 1.6 H Basophils # 0.1 Nucleated Red Blood Cells # 0.0 Sodium Level 140 Potassium Level 4.4 Chloride Level 107 Carbon Dioxide Level 25 Anion Gap 8 Blood Urea Nitrogen 12 Creatinine 1.03 Est Glomerular Filtrat Rate mL/min > 60 Glucose Level 118 Calcium Level 8.4 Vancomycin Level Trough 11.2 Medications Medication Current Medications IV Flush (NS 3 ml) 3 ml PER PROTOCOL IV ; Start 01/27/19 at 02:30 Famotidine (Pepcid) 20 mg BID PO Last administered on 01/30/19at 08:24; Admin Dose 20 MG; Start 01/27/19 at 09:00 Enoxaparin Sodium (Lovenox) 40 mg DAILY SC Last administered on 01/30/19 08:2 6; Admin Dose 40 MG; Start 01/27/19 at 09:00 Acetaminophen (Tylenol Tab) 650 mg Q6H PRN PO MILD PAIN(1-3)OR ELEVATED TEMP Last administered on 01/30/19 08:24; Admin Dose 650 MG; Start 01/27/19 at 03:00 Docusate Sodium (Colace) 100 mg BID PO Last administered on 01/30/19 08:24; Admin Dose 100 MG; Start 01/27/19 at 09:00 Ondansetron HCl (Zofran Odt) 4 mg Q6H PRN ODT nausea; Start 01/27/19 at 03:00 Levofloxacin/ Dextrose 150 ml @ 100 mls/hr Q24H IVPB Last administered on 01/29/19at 12:50; Admin Dose 100 MLS/HR; Start 01/27/19 at 12:00 Sodium Chloride 1,000 ml @ 100 mls/hr Q10H IV Last administered on 01/30/19at 04:44; Admin Dose 100 MLS/HR; Start 01/27/19 at 12:00 Lactulose (Enulose) 20 gm DAILY PO Last administered on 01/30/19at 08:26; Admin Dose 20 GM; Start 01/28/19 at 11:00 Meropenem/Sodium Chloride 50 ml @ 100 mls/hr Q8 IVPB Last administered on 01/30/19at 05:02; Admin Dose 100 MLS/HR; Start 01/28/19 at 15:30 Vancomycin HCl (Vanco Iv Per Pharmacy) VANCOMYCIN PER PHARMACY PER PROTOCOL XX ; Start 01/28/19 at 15:30 Vancomycin HCl 1.25 gm/Sodium Chloride 250 ml @ 83.333 mls/ hr Q12H IVPB ; Start 01/30/19 at 21:00 EDGAR LEI MD January 30, 2019 11:25
[2019-01-30] MEDS: LEVOFLOXACIN 750MG/D5W (PMX) 150 ML IVPB SCH (12:19)
--- NOTE | 2019-01-30 14:38 | CONS ---
Consult Date/Type/Reason Admit Date/Time January 28, 2019 at 09:44 Initial Consult Date Type of Consultation: Pulm Date/Time of Note DATE: 01/30/19 TIME: 14:36 Subjective Feels better. Still with low-grade fevers. Objective Vitals Vital Signs Date Temp Pulse Resp B/P (MAP) Pulse Ox O2 O2 Flow FiO2 Time Delivery Rate 01/30/19 98.0 09:09 01/30/19 104 15 129/84 97 Room Air 07:56 (99) 01/27/19 21 18:04 Intake and Output 01/29/19 01/29/19 01/30/19 1515:00 23:00 07:00 IntakeIntake Total 350 ml 985 ml 750 ml BalanceBalance 350 ml 985 ml 750 ml Exam HEENT: Neck supple; no JVD; no LAD CVS: RRR, S1 and S2 CHEST: + egophony right upper lung field anteriorly ABD: Soft, NT, + BS EXT: No c/c/e Results/Medications Result Diagram: 01/30/1914 01/30/19 0514 Results 24 hrs Laboratory Tests Test 01/30/19 05:14 White Blood Count 10.9 H Red Blood Count 5.14 Hemoglobin 12.4 L Hematocrit 39.5 L Mean Corpuscular Volume 76.8 L Mean Corpuscular Hemoglobin 24.1 L Mean Corpuscular Hemoglobin Concent 31.4 L Red Cell Distribution Width 14.5 Platelet Count 430 H Mean Platelet Volume 10.6 H Immature Granulocytes % 1.300 H Neutrophils % 57.5 Lymphocytes % 14.4 L Monocytes % 10.8 Eosinophils % 15.0 H Basophils % 1.0 Nucleated Red Blood Cells % 0.0 Immature Granulocytes # 0.140 H Neutrophils # 6.3 Lymphocytes # 1.6 Monocytes # 1.2 H Eosinophils # 1.6 H Basophils # 0.1 Nucleated Red Blood Cells # 0.0 Sodium Level 140 Potassium Level 4.4 Chloride Level 107 Carbon Dioxide Level 25 Anion Gap 8 Blood Urea Nitrogen 12 Creatinine 1.03 Est Glomerular Filtrat Rate mL/min > 60 Glucose Level 118 Calcium Level 8.4 Vancomycin Level Trough 11.2 Home Meds Discontinued Reported Medications Amoxicillin/Potassium Clav (Amox-Clav 875-125 mg Tablet) 875-125 mg Tab, 1 TAB PO BID, #20 TAB 01/27/19 Medications Current Medications IV Flush (NS 3 ml) 3 ml PER PROTOCOL IV ; Start 01/27/19 at 02:30 Famotidine (Pepcid) 20 mg BID PO Last administered on 01/30/19 08:24; Admin Dose 20 MG; Start 01/27/19 at 09:00 Enoxaparin Sodium (Lovenox) 40 mg DAILY SC Last administered on 01/30/19 08:26; Admin Dose 40 MG; Start 01/27/19 at 09:00 Acetaminophen (Tylenol Tab) 650 mg Q6H PRN PO MILD PAIN(1-3)OR ELEVATED TEMP Last administered on 01/30/19 08:24; Admin Dose 650 MG; Start 01/27/19 at 03:00 Docusate Sodium (Colace) 100 mg BID PO Last administered on 01/30/19 08:24; Admin Dose 100 MG; Start 01/27/19 at 09:00 Ondansetron HCl (Zofran Odt) 4 mg Q6H PRN ODT nausea; Start 01/27/19 at 03:00 Levofloxacin/ Dextrose 150 ml @ 100 mls/hr Q24H IVPB Last administered on 01/30/19 12:19; Admin Dose 100 MLS/HR; Start 01/27/19 at 12:00 Lactulose (Enulose) 20 gm DAILY PO Last administered on 01/30/19 08:26; Admin Dose 20 GM; Start 01/28/19 at 11:00 Meropenem/Sodium Chloride 50 ml @ 100 mls/hr Q8 IVPB Last administered on 01/30/19at 05:02; Admin Dose 100 MLS/HR; Start 01/28/19 at 15:30 Vancomycin HCl (Vanco Iv Per Pharmacy) VANCOMYCIN PER PHARMACY PER PROTOCOL XX ; Start 01/28/19 at 15:30 Vancomycin HCl 1.25 gm/Sodium Chloride 250 ml @ 83.333 mls/ hr Q12H IVPB ; Start 01/30/19 at 21:00 Miscellaneous Information (*Order Clarification Bulletin) MEDICATION REQUIRES CLARIFICATI... Q8H XX ; Start 01/30/19 at 13:00 Assessment/Plan Assessment/Plan (Daily) IMP: 1. RUL pneumonia--concerning for post-obstructive process 2. RUL mass-like density and mediastinal adenopathy--concerning for bronchogenic cancer RECS: 1. Continue abx per ID 2. F/U AFB 3. CT chest/abd/pelvis with IV contrast 4. Will determine definitive need for bronchoscopy vs. CT-guided approach based on CT findings YAJAIRA FITZGERALD MD January 30, 2019 14:38
[2019-01-30 14:52] VITALS: BP 149/93; PULSE 93; RESP 15
--- NOTE | 2019-01-30 14:57 | CONS ---
Assessment/Plan Assessment/Plan Hospital Course (Demo Recall) ID PROGRESS NOTE CURRENT ABX: DAY #=>Vanco IV + Merrem + Levaquin 24H INTERVAL SUMMARY * Defervescing -- Tmax this am 100.7 down from prior high fevers * Patient with PNA -- in isolation for r/o TB -- QTFG is (-) which does not screen for ALL ATYPICAL MYOBACTERIUM-- Respiratory Cx x3 on order; however not placed as AFB cx and smear x3 hence lab has not checked AFB smears -- RN Called lab -- they will attempt to perform AFB smears on sputum already sent down to lab -- I placed appropriate order for AFB Smears & Cx x3 IMAGING * Chest CT revealed dense consolidation in the anterior right upper lobe keeping with lobar pneumonia. Please see full report in the chart MICRO/OTHER * QTF GOLD IS NEGATIVE * 01/28/19 RESP CX: Louis: 01/28/19-2155 Rcvd: 01/28/19 Source: SPUTUM Sp Descrip: GRAM STAIN Final POLYMORPH. LEUKOCYTE 1+ EPITHELIAL CELLS 1+ GRAM POS COCCI IN PAIRS 1+ * 01/27/19 RESP CX: Louis: 01/27/19-2249 Rcvd: 01/27/19-2347 Source: SPUTUM Sp Descrip: GRAM STAIN Final POLYMORPH. LEUKOCYTE RARE . NO ORGANISM SEEN RESPIRATORY CULTURE Preliminary Organism 1 NORMAL RESPIRATORY HAI QUANTITY 2+ PHYSICAL EXAMINATION: GENERAL: VSS, NAD HEENT: AT, NC NECK: WNL CHEST: Equal chest rise bilaterally without dyspnea on observation EXTREMITIES: Warm, dry SKIN: No rash, no diaphoresis ID ASSESSMENT 63 yo M admit with: 1. Sepsis with ongoing fevers, leukocytosis 2. Right upper lobe pneumonia * r/o Atypical Myobacterium * QTF GOLD IS NEGATIVE 3. CT finding of bulky lymphadenopathy in the mediastinum and right hilum that may be seen with malignancy. * Suggest further evaluation with bronchoscopy and biopsy per radiologist report. ABX ALLERGIES: KNDA INVASIVES: PICC RUEXT CURRENT ABX: DAY # =>Vanco IV + Merrem + Levaquin ID RECOMMENDATIONS/PLAN: 1. Check MRSA NARES 2. Check Myoplasma bacterial AG, send cocci 3. Continue current IV ABX 4. Await clinical and radiographic improvement . Consultation Date/Type/Reason Admit Date/Time January 28, 2019 at 09:44 Initial Consult Date Date/Time of Note DATE: 01/30/19 TIME: 14:56 Exam/Review of Systems Exam Vitals Vital Signs Date Temp Pulse Resp B/P (MAP) Pulse Ox O2 O2 Flow FiO2 Time Delivery Rate 01/30/19 98.0 09:09 01/30/19 104 15 129/84 97 Room Air 07:56 (99) 01/27/19 21 18:04 Intake and Output 01/29/19 01/29/19 01/30/19 1515:00 23:00 07:00 IntakeIntake Total 350 ml 985 ml 750 ml BalanceBalance 350 ml 985 ml 750 ml Results Result Diagram: 01/30/19 0514 01/30/19 0514 Results 24hrs Laboratory Tests Test 01/30/19 05:14 White Blood Count 10.9 H Red Blood Count 5.14 Hemoglobin 12.4 L Hematocrit 39.5 L Mean Corpuscular Volume 76.8 L Mean Corpuscular Hemoglobin 24.1 L Mean Corpuscular Hemoglobin Concent 31.4 L Red Cell Distribution Width 14.5 Platelet Count 430 H Mean Platelet Volume 10.6 H Immature Granulocytes % 1.300 H Neutrophils % 57.5 Lymphocytes % 14.4 L Monocytes % 10.8 Eosinophils % 15.0 H Basophils % 1.0 Nucleated Red Blood Cells % 0.0 Immature Granulocytes # 0.140 H Neutrophils # 6.3 Lymphocytes # 1.6 Monocytes # 1.2 H Eosinophils # 1.6 H Basophils # 0.1 Nucleated Red Blood Cells # 0.0 Sodium Level 140 Potassium Level 4.4 Chloride Level 107 Carbon Dioxide Level 25 Anion Gap 8 Blood Urea Nitrogen 12 Creatinine 1.03 Est Glomerular Filtrat Rate mL/min > 60 Glucose Level 118 Calcium Level 8.4 Vancomycin Level Trough 11.2 Medications Medication Current Medications IV Flush (NS 3 ml) 3 ml PER PROTOCOL IV ; Start 01/27/19 at 02:30 Famotidine (Pepcid) 20 mg BID PO Last administered on 01/30/19at 08:24; Admin Dose 20 MG; Start 01/27/19 at 09:00 Enoxaparin Sodium (Lovenox) 40 mg DAILY SC Last administered on 01/30/19 08:26; Admin Dose 40 MG; Start 01/27/19 at 09:00 Acetaminophen (Tylenol Tab) 650 mg Q6H PRN PO MILD PAIN(1-3)OR ELEVATED TEMP Last administered on 01/30/19 08:24; Admin Dose 650 MG; Start 01/27/19 at 03:00 Docusate Sodium (Colace) 100 mg BID PO Last administered on 01/30/19 08:24; Admin Dose 100 MG; Start 01/27/19 at 09:00 Ondansetron HCl (Zofran Odt) 4 mg Q6H PRN ODT nausea; Start 01/27/19 at 03:00 Levofloxacin/ Dextrose 150 ml @ 100 mls/hr Q24H IVPB Last administered on 01/30/19 12:19; Admin Dose 100 MLS/HR; Start 01/27/19 at 12:00 Lactulose (Enulose) 20 gm DAILY PO Last administered on 01/30/19 08:26; Admin Dose 20 GM; Start 01/28/19 at 11:00 Meropenem/Sodium Chloride 50 ml @ 100 mls/hr Q8 IVPB Last administered on 01/30/19 14:46; Admin Dose 100 MLS/HR; Start 01/28/19 at 15:30 Vancomycin HCl (Vanco Iv Per Pharmacy) VANCOMYCIN PER PHARMACY PER PROTOCOL XX ; Start 01/28/19 at 15:30 Vancomycin HCl 1.25 gm/Sodium Chloride 250 ml @ 83.333 mls/ hr Q12H IVPB ; Start 01/30/19 at 21:00 Miscellaneous Information (*Order Clarification Bulletin) MEDICATION REQUIRES CLARIFICATI... Q8H XX ; Start 01/30/19 at 13:00 HAM PICKERING NP January 30, 2019 14:56
[2019-01-30] MEDS ORDERED: IOHEXOL 300MG/ML 150 ML BTL ONE (17:07)
[2019-01-30] MEDS ORDERED: SOD CHLORIDE 0.9% 100 ML ONE (17:07)
[2019-01-30 20:20] VITALS: BP 143/96; PULSE 118; RESP 18
[2019-01-30 21:43] VITALS: BP 108/71; PULSE 110; RESP 17
[2019-01-30] MEDS: VANCOMYCIN HCL 1.25 GM in SOD CHLORIDE 0.9% 250 ML IVPB SCH (22:03)
[2019-01-31] MEDS: ACETAMINOPHEN 325 MG TAB PO PRN ×2 (01:44→17:41)
[2019-01-31 01:55] VITALS: BP 117/81; PULSE 109; RESP 18
[2019-01-31] MEDS: MEROPENEM 1 GM/50ML(PMX) 50 ML IVPB SCH ×3 (05:33→21:37)
[2019-01-31 06:34] VITALS: BP 103/76; PULSE 89; RESP 17
[2019-01-31 08:00] VITALS: BP 104/62; PULSE 90; RESP 16
[2019-01-31] MEDS: FAMOTIDINE 20 MG TAB PO SCH ×2 (08:47→20:32)
[2019-01-31] MEDS: DOCUSATE SODIUM 100 MG CAP PO SCH ×2 (08:47→20:31)
[2019-01-31] MEDS: VANCOMYCIN HCL 1.25 GM in SOD CHLORIDE 0.9% 250 ML IVPB SCH ×2 (08:47→22:11)
[2019-01-31] MEDS: ENOXAPARIN 40 MG/0.4 ML SYG SC SCH (08:48)
[2019-01-31] MEDS: LACTULOSE 30ML CUP PO SCH (08:48)
--- NOTE | 2019-01-31 11:24 | PN ---
Date/Time of Note Date/Time of Note DATE: 01/31/19 TIME: 11:22 Subjective Doing well. No new complaints. Continues to have fever. Objective Vitals Vital Signs Date Temp Pulse Resp B/P (MAP) Pulse Ox O2 O2 Flow FiO2 Time Delivery Rate 01/31/19 98.2 90 16 104/62 97 08:00 (76) 01/31/19 Room Air 06:34 01/27/19 21 18:04 Intake and Output 01/30/19 01/30/19 01/31/19 1515:00 23:00 07:00 IntakeIntake Total 400 ml 700 ml 250 ml BalanceBalance 400 ml 700 ml 250 ml Lungs with right-sided rhonchi Cardiac regular rate and rhythm Abdomen soft nontender nondistended No edema Nonfocal Results Result Diagram: 01/31/19 0530 01/30/19 0514 Medications Medications Current Medications IV Flush (NS 3 ml) 3 ml PER PROTOCOL IV ; Start 01/27/19 at 02:30 Famotidine (Pepcid) 20 mg BID PO Last administered on 01/31/19at 08:47; Admin Dose 20 MG; Start 01/27/19 at 09:00 Enoxaparin Sodium (Lovenox) 40 mg DAILY SC Last administered on 01/31/19 08:48; Admin Dose 40 MG; Start 01/27/19 at 09:00 Acetaminophen (Tylenol Tab) 650 mg Q6H PRN PO MILD PAIN(1-3)OR ELEVATED TEMP Last administered on 01/31/19at 01:44; Admin Dose 650 MG; Start 01/27/19 at 03:00 Docusate Sodium (Colace) 100 mg BID PO Last administered on 01/31/19at 08:47; Admin Dose 100 MG; Start 01/27/19 at 09:00 Ondansetron HCl (Zofran Odt) 4 mg Q6H PRN ODT nausea; Start 01/27/19 at 03:00 Levofloxacin/ Dextrose 150 ml @ 100 mls/hr Q24H IVPB Last administered on 01/30/19at 12:19; Admin Dose 100 MLS/HR; Start 01/27/19 at 12:00 Lactulose (Enulose) 20 gm DAILY PO Last administered on 01/31/19at 08:48; Admin Dose 20 GM; Start 01/28/19 at 11:00 Meropenem/Sodium Chloride 50 ml @ 100 mls/hr Q8 IVPB Last administered on 01/31/19at 05:33; Admin Dose 100 MLS/HR; Start 01/28/19 at 15:30 Vancomycin HCl (Vanco Iv Per Pharmacy) VANCOMYCIN PER PHARMACY PER PROTOCOL XX ; Start 01/28/19 at 15:30 Vancomycin HCl 1.25 gm/Sodium Chloride 250 ml @ 83.333 mls/ hr Q12H IVPB Last administered on 01/31/19at 08:47; Admin Dose 83.333 MLS/HR; Start 01/30/19 at 21:00 VTE Prophylaxis Risk score (from Ns)>0 risk: 2 SCD applied (from Ns): No SCD contraindication: low risk/ambulating Lines/Catheters IV Catheter Type: Saline Lock Grier in Place: No Assessment/Plan Assessment/Plan 63-year-old male with right upper lobe mass, consistent with bronchogenic carcinoma Postobstructive pneumonia Discontinue respiratory isolation Proceed with CT-guided biopsy of right lung mass Oncology consultation was requested Case was discussed with patient. JOSE RAY MD January 31, 2019 11:24
[2019-01-31 14:00] VITALS: BP 139/80; PULSE 109; RESP 18
--- NOTE | 2019-01-31 14:57 | CONS ---
Assessment/Plan Assessment/Plan Hospital Course (Demo Recall) Patient is awake sitting up in a chair still with ongoing fevers, T-max yesterday 103.2. WBC today 11.5 platelets 386 neutrophils 55.3 BUN 12 creatinine 1.03 Microbiology: All cultures have been negative since admission AFB smears 3 sets came back negative Antimicrobials: Vancomycin, Merrem, Levaquin CT of the abdomen and pelvis revealed large 3.6 x 3.2 cm right perihilar mass lesion concerning for bronchogenic carcinoma. Please see full report in the chart Physical examination: This is a well-developed ill-appearing elderly - [place] man who is awake in no distress. Head atraumatic normocephalic neck is supple chest rise symmetrical breath sounds diminished bases heart S1-S2 abdomen soft bowel sounds present extremities without cyanosis Assessment: 1. Sepsis with ongoing fevers secondary to #2 and 3 2. Right upper lobe postobstructive pneumonia 3. Metastatic lung cancer with mets to liver Plan: Clinically unchanged, scheduled for CT-guided biopsy of the lung mass, continue antibiotics, okay discontinue pulmonary/droplet isolation Consultation Date/Type/Reason Admit Date/Time January 28, 2019 at 09:44 Initial Consult Date Type of Consult id Date/Time of Note DATE: 01/31/19 TIME: 14:55 Exam/Review of Systems Exam Vitals Vital Signs Date Temp Pulse Resp B/P (MAP) Pulse Ox O2 O2 Flow FiO2 Time Delivery Rate 01/31/19 98.3 109 18 139/80 98 14:00 (99) 01/31/19 Room Air 06:34 01/27/19 21 18:04 Intake and Output 01/30/19 01/30/19 01/31/19 1515:00 23:00 07:00 IntakeIntake Total 400 ml 700 ml 250 ml BalanceBalance 400 ml 700 ml 250 ml Results Result Diagram: 01/31/19 0530 01/30/19 0514 Results 24hrs Laboratory Tests Test 01/31/19 05:30 White Blood Count 11.5 H Red Blood Count 5.15 Hemoglobin 12.4 L Hematocrit 39.5 L Mean Corpuscular Volume 76.7 L Mean Corpuscular Hemoglobin 24.1 L Mean Corpuscular Hemoglobin Concent 31.4 L Red Cell Distribution Width 14.6 H Platelet Count 386 Mean Platelet Volume 10.9 H Immature Granulocytes % 1.200 H Neutrophils % 55.3 Lymphocytes % 15.9 Monocytes % 11.5 H Eosinophils % 15.2 H Basophils % 0.9 Nucleated Red Blood Cells % 0.0 Immature Granulocytes # 0.140 H Neutrophils # 6.4 Lymphocytes # 1.8 Monocytes # 1.3 H Eosinophils # 1.7 H Basophils # 0.1 Nucleated Red Blood Cells # 0.0 Medications Medication Current Medications IV Flush (NS 3 ml) 3 ml PER PROTOCOL IV ; Start 01/27/19 at 02:30 Famotidine (Pepcid) 20 mg BID PO Last administered on 01/31/19 08:47; Admin Dose 20 MG; Start 01/27/19 at 09:00 Enoxaparin Sodium (Lovenox) 40 mg DAILY SC Last administered on 01/31/19 08:48; Admin Dose 40 MG; Start 01/27/19 at 09:00 Acetaminophen (Tylenol Tab) 650 mg Q6H PRN PO MILD PAIN(1-3)OR ELEVATED TEMP [place] st administered on 01/31/19 01:44; Admin Dose 650 MG; Start 01/27/19 at 03:00 Docusate Sodium (Colace) 100 mg BID PO Last administered on 01/31/19 08:47; Admin Dose 100 MG; Start 01/27/19 at 09:00 Ondansetron HCl (Zofran Odt) 4 mg Q6H PRN ODT nausea; Start 01/27/19 at 03:00 Levofloxacin/ Dextrose 150 ml @ 100 mls/hr Q24H IVPB Last administered on 01/30/19 12:19; Admin Dose 100 MLS/HR; Start 01/27/19 at 12:00 Lactulose (Enulose) 20 gm DAILY PO Last administered on 01/31/19 08:48; Admin Dose 20 GM; Start 01/28/19 at 11:00 Meropenem/Sodium Chloride 50 ml @ 100 mls/hr Q8 IVPB Last administered on 01/31/19 05:33; Admin Dose 100 MLS/HR; Start 01/28/19 at 15:30 Vancomycin HCl (Vanco Iv Per Pharmacy) VANCOMYCIN PER PHARMACY PER PROTOCOL XX ; Start 01/28/19 at 15:30 Vancomycin HCl 1.25 gm/Sodium Chloride 250 ml @ 83.333 mls/ hr Q12H IVPB Last administered on 01/31/19at 08:47; Admin Dose 83.333 MLS/HR; Start 01/30/19 at 21:00 Miscellaneous Information (*Rx Drug Level Order Reminder*) 1 0800 ONCE XX ; Start 02/01/19 at 08:00; Stop 02/01/19 at 08:01 KAYODE RAPP NP January 31, 2019 14:57
--- NOTE | 2019-01-31 15:06 | CONS ---
Consult Date/Type/Reason Admit Date/Time January 28, 2019 at 09:44 Initial Consult Date Type of Consult Pulmonary Date/Time of Note DATE: 01/31/19 TIME: 15:05 Subjective Patient stable this morning. States he has less shortness of breath. Still has occasional cough. Objective Vital Signs Date Temp Pulse Resp B/P (MAP) Pulse Ox O2 O2 Flow FiO2 Time Delivery Rate 01/31/19 98.3 109 18 139/80 98 14:00 (99) 01/31/19 Room Air 06:34 01/27/19 21 18:04 Intake and Output 01/30/19 01/30/19 01/31/19 1515:00 23:00 07:00 IntakeIntake Total 400 ml 700 ml 250 ml BalanceBalance 400 ml 700 ml 250 ml Exam GENERAL: Well-nourished well-developed gentleman VITAL SIGNS: per chart NECK: Supple. No JVD or lymphadenopathy. CARDIAC EXAM: S1, S2. No added sounds or murmurs. CHEST: clear bilaterally, No added sounds, rales or wheezes ABDOMEN: Soft, nontender. No guarding or rebound. EXTREMITIES: No cyanosis, clubbing or edema. NEUROLOGIC: Generalized weakness. No focal deficits. Vent Setting Fraction of Inspired Oxygen pe: 21 Results/Medications Result Diagram: 01/31/19 0530 01/30/19 0514 Results 24 hrs Laboratory Tests Test 01/31/19 05:30 White Blood Count 11.5 H Red Blood Count 5.15 Hemoglobin 12.4 L Hematocrit 39.5 L Mean Corpuscular Volume 76.7 L Mean Corpuscular Hemoglobin 24.1 L Mean Corpuscular Hemoglobin Concent 31.4 L Red Cell Distribution Width 14.6 H Platelet Count 386 Mean Platelet Volume 10.9 H Immature Granulocytes % 1.200 H Neutrophils % 55.3 Lymphocytes % 15.9 Monocytes % 11.5 H Eosinophils % 15.2 H Basophils % 0.9 Nucleated Red Blood Cells % 0.0 Immature Granulocytes # 0.140 H Neutrophils # 6.4 Lymphocytes # 1.8 Monocytes # 1.3 H Eosinophils # 1.7 H Basophils # 0.1 Nucleated Red Blood Cells # 0.0 Medications Current Medications IV Flush (NS 3 ml) 3 ml PER PROTOCOL IV ; Start 01/27/19 at 02:30 Famotidine (Pepcid) 20 mg BID PO Last administered on 01/31/19 08:47; Admin Dose 20 MG; Start 01/27/19 at 09:00 Enoxaparin Sodium (Lovenox) 40 mg DAILY SC Last administered on 01/31/19 08:48; Admin Dose 40 MG; Start 01/27/19 at 09:00 Acetaminophen (Tylenol Tab) 650 mg Q6H PRN PO MILD PAIN(1-3)OR ELEVATED TEMP Last administered on 01/31/19 01:44; Admin Dose 650 MG; Start 01/27/19 at 03:00 Docusate Sodium (Colace) 100 mg BID PO Last administered on 01/31/19 08:47; Admin Dose 100 MG; Start 01/27/19 at 09:00 Ondansetron HCl (Zofran Odt) 4 mg Q6H PRN ODT nausea; Start 01/27/19 at 03:00 Levofloxacin/ Dextrose 150 ml @ 100 mls/hr Q24H IVPB Last administered on 01/30/19 12:19; Admin Dose 100 MLS/HR; Start 01/27/19 at 12:00 Lactulose (Enulose) 20 gm DAILY PO Last administered on 01/31/19 08:48; Admin Dose 20 GM; Start 01/28/19 at 11:00 Meropenem/Sodium Chloride 50 ml @ 100 mls/hr Q8 IVPB Last administered on 01/31/19 05:33; Admin Dose 100 MLS/HR; Start 01/28/19 at 15:30 Vancomycin HCl (Vanco Iv Per Pharmacy) VANCOMYCIN PER PHARMACY PER PROTOCOL XX ; Start 01/28/19 at 15:30 Vancomycin HCl 1.25 gm/Sodium Chloride 250 ml @ 83.333 mls/ hr Q12H IVPB Last administered on 01/31/19 08:47; Admin Dose 83.333 MLS/HR; Start 01/30/19 at 21:00 Miscellaneous Information (*Rx Drug Level Order Reminder*) 1 0800 ONCE XX ; Start 02/01/19 at 08:00; Stop 02/01/19 at 08:01 Assessment/Plan Hospital Course (Demo Recall) IMP: 1. RUL pneumonia--concerning for post-obstructive process 2. Right hilar mass on CT chest. Likely postobstructive pneumonia from this. RECS: 1. Continue abx per ID 2. Case discussed with primary team. Given location of right hilar lesion patient will need CT surgery for mediastinoscopy and biopsy. 3. I will order preop PFTs. JOE MENDOZA MD, [facility] January 31, 2019 15:06
[2019-01-31] MEDS: LEVOFLOXACIN 750MG/D5W (PMX) 150 ML IVPB SCH (16:03)
[2019-01-31 20:30] VITALS: BP 111/66; PULSE 110; RESP 18
[2019-02-01 02:53] VITALS: BP 114/76; PULSE 108; RESP 18
[2019-02-01] MEDS: MEROPENEM 1 GM/50ML(PMX) 50 ML IVPB SCH (05:09)
[2019-02-01 07:29] VITALS: BP 102/64; PULSE 105; RESP 18
[2019-02-01] MEDS: LACTULOSE 30ML CUP PO SCH (09:00)
[2019-02-01] MEDS: DOCUSATE SODIUM 100 MG CAP PO SCH (09:00)
[2019-02-01] MEDS: VANCOMYCIN HCL 1.25 GM in SOD CHLORIDE 0.9% 250 ML IVPB SCH (09:21)
[2019-02-01] MEDS: FAMOTIDINE 20 MG TAB PO SCH (09:21)
[2019-02-01] MEDS: ENOXAPARIN 40 MG/0.4 ML SYG SC SCH (09:22)
[2019-02-01] MEDS ORDERED: AMOX1TAB10 PO (10:25)
[2019-02-01] MEDS ORDERED: LEVO750T25 PO (10:25)
--- NOTE | 2019-02-01 10:26 | PDOCDIS ---
Discharge Instructions CONDITION [id number] Patient Condition: [id number] Good HOME CARE INSTRUCTIONS: [id number] Diet Instructions: [id number] Regular ACTIVITY: [id number] Activity Restrictions: [id number] Rest between Activity FOLLOW UP/APPOINTMENTS Follow-up Plan pcp [address] Herring 2 days JOSE RAY MD February 01, 2019 10:26
--- NOTE | 2019-02-01 11:02 | PDOCDIS ---
Discharge Instructions CONDITION [id number] Patient Condition: [id number] Good HOME CARE INSTRUCTIONS: [id number] Diet Instructions: [id number] Regular ACTIVITY: [id number] Activity Restrictions: [id number] Rest between Activity FOLLOW UP/APPOINTMENTS Follow-up Plan pcp [address] Herring [address] Pham 1 week JOSE RAY MD February 01, 2019 11:02
[2019-02-01] MEDS: LEVOFLOXACIN 750MG/D5W (PMX) 150 ML IVPB SCH (13:22)
[2019-02-01 13:47] VITALS: BP 121/80; PULSE 105; RESP 16
[2019-02-01 14:41] VITALS: PULSE 94
--- NOTE | 2019-02-01 14:41 | CONS ---
Assessment/Plan Assessment/Plan Hospital Course (Demo Recall) No acute events, low grade temps, no sob Microbiology: All cultures have been negative since admission AFB smears 3 sets came back negative Antimicrobials: Vancomycin, Merrem, Levaquin CT of the abdomen and pelvis revealed large 3.6 x 3.2 cm right perihilar mass lesion concerning for bronchogenic carcinoma. Please see full report in the chart Physical examination: This is a well-developed ill-appearing elderly - [place] man who is awake in no distress. Head atraumatic normocephalic neck is supple chest rise symmetrical breath sounds diminished bases heart S1-S2 abdomen soft bowel sounds present extremities without cyanosis Assessment: 1. Sepsis with ongoing fevers secondary to #2 and 3 2. Right upper lobe postobstructive pneumonia 3. Metastatic lung cancer with mets to liver Plan: Clinically unchanged, continue antibiotics, plan for CT guided bx on . Pt is going home on PO Levaquin and Augmentin DW Dr Aguilar Consultation Date/Type/Reason Admit Date/Time January 28, 2019 at 09:44 Initial Consult Date Type of Consult id Date/Time of Note DATE: 02/01/19 TIME: 14:35 Exam/Review of Systems Exam Vitals Vital Signs Date Temp Pulse Resp B/P (MAP) Pulse Ox O2 O2 Flow FiO2 Time Delivery Rate 02/01/19 98.5 105 16 121/80 94 Room Air 13:47 (94) Intake and Output 01/31/19 01/31/19 02/01/19 1414:59 22:59 06:59 IntakeIntake Total 600 ml 500 ml 300 ml OutputOutput Total 500 ml 500 ml 225 ml BalanceBalance 100 ml 0 ml 75 ml Results Result Diagram: 01/31/19 0530 01/30/19 0514 Results 24hrs Laboratory Tests Test 02/01/19 07:59 02/01/19 11:54 Prothrombin Time 14.6 Prothrombin Time Ratio 1.1 INR International Normalized Ratio 1.13 Activated Partial Thromboplast Time 40.5 H Vancomycin Level Trough 16.1 Lab Scanned Report REFERENCE LAB Medications Medication Current Medications IV Flush (NS 3 ml) 3 ml PER PROTOCOL IV ; Start 01/27/19 at 02:30 Famotidine (Pepcid) 20 mg BID PO Last administered on 02/01/19at 09:21; Admin Dose 20 MG; Start 01/27/19 at 09:00 Enoxaparin Sodium (Lovenox) 40 mg DAILY SC Last administered on 02/01/19 09:22; Admin Dose 40 MG; Start 01/27/19 at 09:00 Acetaminophen (Tylenol Tab) 650 mg Q6H PRN PO MILD PAIN(1-3)OR ELEVATED TEMP Last administered on 01/31/19 17:41; Admin Dose 650 MG; Start 01/27/19 at 03:00 Docusate Sodium (Colace) 100 mg BID PO Last administered on 01/31/19 20:31; Admin Dose 100 MG; Start 01/27/19 at 09:00 Ondansetron HCl (Zofran Odt) 4 mg Q6H PRN ODT nausea; Start 01/27/19 at 03:00 Levofloxacin/ Dextrose 150 ml @ 100 mls/hr Q24H IVPB Last administered on 02/01/19 13:22; Admin Dose 100 MLS/HR; Start 01/27/19 at 12:00 Lactulose (Enulose) 20 gm DAILY PO Last administered on 01/31/19 08:48; Admin Dose 20 GM; Start 01/28/19 at 11:00 Meropenem/Sodium Chloride 50 ml @ 100 mls/hr Q8 IVPB Last administered on 02/01/19 05:09; Admin Dose 100 MLS/HR; Start 01/28/19 at 15:30 Vancomycin HCl (Vanco Iv Per Pharmacy) VANCOMYCIN PER PHARMACY PER PROTOCOL XX ; Start 01/28/19 at 15:30 Vancomycin HCl 1.25 gm/Sodium Chloride 250 ml @ 83.333 mls/ hr Q12H IVPB Last administered on 02/01/19 09:21; Admin Dose 83.333 MLS/HR; Start 01/30/19 at 21:00 KAYODE RAPP NP February 01, 2019 14:40
--- NOTE | 2019-02-01 14:58 | CONS ---
Consult Date/Type/Reason Admit Date/Time January 28, 2019 at 09:44 Initial Consult Date Type of Consult Pulmonary Date/Time of Note DATE: 02/01/19 TIME: 14:55 Subjective Patient stable this morning. No new events. Objective Vital Signs Date Temp Pulse Resp B/P (MAP) Pulse Ox O2 O2 Flow FiO2 Time Delivery Rate 02/01/19 94 14:41 02/01/19 98.5 16 121/80 94 Room Air 13:47 (94) Intake and Output 01/31/19 01/31/19 02/01/19 1515:00 23:00 07:00 IntakeIntake Total 600 ml 500 ml 300 ml OutputOutput Total 500 ml 500 ml 225 ml BalanceBalance 100 ml 0 ml 75 ml Exam GENERAL: Well-nourished well-developed gentleman VITAL SIGNS: per chart NECK: Supple. No JVD or lymphadenopathy. CARDIAC EXAM: S1, S2. No added sounds or murmurs. CHEST: clear bilaterally, No added sounds, rales or wheezes ABDOMEN: Soft, nontender. No guarding or rebound. EXTREMITIES: No cyanosis, clubbing or edema. NEUROLOGIC: Generalized weakness. No focal deficits. Vent Setting Fraction of Inspired Oxygen pe: 21 Results/Medications Result Diagram: 01/31/19 0530 01/30/19 0514 Results 24 hrs Laboratory Tests Test 02/01/19 07:59 02/01/19 11:54 Prothrombin Time 14.6 Prothrombin Time Ratio 1.1 INR International Normalized Ratio 1.13 Activated Partial Thromboplast Time 40.5 H Vancomycin Level Trough 16.1 Lab Scanned Report REFERENCE LAB Medications Current Medications IV Flush (NS 3 ml) 3 ml PER PROTOCOL IV ; Start 01/27/19 at 02:30 Famotidine (Pepcid) 20 mg BID PO Last administered on 02/01/19at 09:21; Admin Dose 20 MG; Start 01/27/19 at 09:00 Enoxaparin Sodium (Lovenox) 40 mg DAILY SC Last administered on 02/01/19at 09:22; Admin Dose 40 MG; Start 01/27/19 at 09:00 Acetaminophen (Tylenol Tab) 650 mg Q6H PRN PO MILD PAIN(1-3)OR ELEVATED TEMP Last administered on 01/31/19at 17:41; Admin Dose 650 MG; Start 01/27/19 at 03:00 Docusate Sodium (Colace) 100 mg BID PO Last administered on 01/31/19at 20:31; Admin Dose 100 MG; Start 01/27/19 at 09:00 Ondansetron HCl (Zofran Odt) 4 mg Q6H PRN ODT nausea; Start 01/27/19 at 03:00 Levofloxacin/ Dextrose 150 ml @ 100 mls/hr Q24H IVPB Last administered on 02/01/19at 13:22; Admin Dose 100 MLS/HR; Start 01/27/19 at 12:00 Lactulose (Enulose) 20 gm DAILY PO Last administered on 01/31/19at 08:48; Admin Dose 20 GM; Start 01/28/19 at 11:00 Meropenem/Sodium Chloride 50 ml @ 100 mls/hr Q8 IVPB Last administered on 02/01/19at 05:09; Admin Dose 100 MLS/HR; Start 01/28/19 at 15:30 Vancomycin HCl (Vanco Iv Per Pharmacy) VANCOMYCIN PER PHARMACY PER PROTOCOL XX ; Start 01/28/19 at 15:30 Vancomycin HCl 1.25 gm/Sodium Chloride 250 ml @ 83.333 mls/ hr Q12H IVPB Last administered on 02/01/19at 09:21; Admin Dose 83.333 MLS/HR; Start 01/30/19 at 21:00 Assessment/Plan Hospital Course (Demo Recall) IMP: 1. RUL pneumonia--concerning for post-obstructive process 2. Right hilar mass on CT chest. Likely postobstructive pneumonia from this. RECS: 1. Continue abx per ID 2. Case discussed with primary team. Given location of right hilar lesion patient will need CT surgery for mediastinoscopy and biopsy. 3. PFTs pending 4. Case discussed with thoracic surgery pending mediastinoscopy JOE MENDOZA MD, [facility] February 01, 2019 14:58
--- NOTE | 2019-02-01 19:44 | DS ---
DATE OF ADMISSION: 01/28/2019 DATE OF DISCHARGE: 02/01/2019 DISCHARGE DIAGNOSES: 1. A 63-year-old male with newly diagnosed right upper lobe lung mass consistent with bronchogenic m alignancy. 2. Postobstructive pneumonia. 3. Liver metastasis. HOSPITAL COURSE: A 63-year-old male presented to emergency room with complaint of persistent fevers. Initially, he was diagnosed with right upper lobe pneumonia. He was seen in consultation by the in fectious disease specialist and wing scorer. High resolution CT of the chest did not show any mass and only showed infiltrate. Repeat CAT scan of the chest, abdomen and pelvis with IV contrast showe d large 3.6 x 3.2 cm right perihilar mass. There was evidence of postobstructive pneumonia. There w as extensive mediastinal lymphadenopathy with pretracheal lymph node measuring 2.7 x 2 cm and multipl e pretracheal lymph nodes. There was heterogeneous 17 x 7 mm right hepatic lobe lesion. This most l ikely represents metastatic disease. The patient was asymptomatic during the hospitalization. There was no cough or shortness of breath. He was on broad spectrum antibiotics. The patient was seen in consultation by Dr. Herring. He re commended to follow up as outpatient for staging mediastinoscopy and biopsy. The case was also discu ssed with infectious disease physician warehouse assistant. Recommendation was to continue Levaquin and Augmen tin as outpatient. The patient is in a stable condition for discharge. He will follow up with his P CP and Dr. Herring as an outpatient. I consulted oncology as well. MEDICATIONS ON DISCHARGE: 1. Augmentin 875/125 mg tablet b.i.d. x10 days. 2. Levaquin 750 mg p.o. daily. FOLLOWUP: 1. Follow up with PCP. 2. Follow up with Dr. Herring in 2 days. Dictated By: JOSE RAY MD SK/NTS Conf#: [id number] DID#: [id number] CC: JOE MENDOZA MD; PETER HINOJOSA MD;*EndCC*
== END 2019-02-01 15:33 | disposition home or self-care (01) | DRG 871 ==
LOC: INTOOBSV 01-27 01:53 → 5EC 01-27 01:53 → OBSVTOIN 01-28 09:44 → 5EC 02-01 05:24
PROVIDERS: ADMIT Internal Medicine; ATTEND Internal Medicine
DX: A41.9 Sepsis, unspecified organism (principal); J18.8 Other pneumonia, unspecified organism; C78.7 Secondary malignant neoplasm of liver and intrahepatic bile duct; C34.11 Malignant neoplasm of upper lobe, right bronchus or lung; R59.0 Localized enlarged lymph nodes; Z87.891 Personal history of nicotine dependence
CPT/HCPCS: 71250; 71260; 74177; 80048; 80202; 82565; 83036; 84520; 85025; 85610; 85730; 86480; 86635; 87070; 87077; 87081; 87086; 87116; 87449; 89220; 94640; 94664; 99217; G0378; J0696; J1650; J1956; J2185; J3370; J7030; J7050; Q9967

== ENCOUNTER 2019-02-04 13:21 | Day surgery (SDC) | payer OTHER ==
[~2019-02-04] VITALS: Ht 170.2 cm; Wt 81.1 kg
[~2019-02-04 13:21] MED LIST: AMOX1TAB10 PO; LEVO750T25 PO
[2019-02-04 14:12] VITALS: Ht 170.2 cm; Wt 81.1 kg
[2019-02-04 14:27] VITALS: BP 110/74; PULSE 113; RESP 16
[2019-02-04] MEDS ORDERED: DESFLURANE 15 MIN ONE (15:00)
[2019-02-04] MEDS ORDERED: PHENYLephrine (100 MCG/ML) 5ML SYG ONE (15:00)
[2019-02-04] MEDS ORDERED: MEPERIDINE 25 MG INJ IV PRN (15:00)
[2019-02-04] MEDS ORDERED: ONDANSETRON 4 MG INJ IV PRN (15:00)
[2019-02-04] MEDS ORDERED: HYDROmorphONE 1 MG/5 ML IV SYRINGE IV PRN ×2 (15:00)
--- NOTE | 2019-02-04 15:00 | PREAC ---
Date/Time of Note Date/Time of Note DATE: 02/04/19 TIME: 14:59 Anesthesia Eval and Record Evaluation Time Pre-Procedure Interview DATE: 02/04/19 TIME: 14:59 Age 63 Sex male NPO: 8 hrs Preoperative diagnosis medistinal lymphadenophaty Planned procedure medianoscopy Past Medical History Past Medical History: Includes Pulm: Smoking Hx Surgery & Anesthesia Issues No known issue Meds Anticoagulation: No Beta Mina within 24 hr: No Reason Beta Mina not given: Pt. not on B-Mina Active Scripts Amoxicillin/Potassium Clav (Amox-Clav 875-125 mg Tablet) 875-125 mg Tab, 1 TAB PO BID for 10 Days, #20 TAB Prov:JOSE RAY MD 02/01/19 Levofloxacin* (Levaquin*) 750 Mg Tablet, 750 MG PO DAILY for 10 Days, TAB Prov:JOSE RAY MD 02/01/19 Meds reviewed: Yes Allergies Coded Allergies: No Known Allergy (Unverified , 01/27/19) Allergies Reviewed: Yes Labs/Studies Labs Reviewed: Reviewed by anesthesiologist test: N/A Pre-procedure Exam Last vitals Vital Signs Date Temp Pulse Resp B/P (MAP) Pulse Ox O2 O2 Flow FiO2 Time Delivery Rate 02/04/19 97.7 113 16 110/74 97 Room Air 14:27 (86) Airway: Adequate mouth opening, Adequate thyromental dist Mallampati: Mallampati I Teeth: Normal Lung: Normal Heart: Normal ASA Physical Status ASA physical status: 2 Emergency: None Pre-operative Attestations Prior to commencing anesthesia and surgery, the patient was re-evaluated, there was verification of: *The patient's identity *The results of appropriate recent lab work and preoperative vital signs *The above evaluation not changing prior to induction *Anesthetic plan, risk benefits, alternative and complications discussed with patient/family; questions answered; patient/family understands, accepts and wishes to proceed. VIOLETA MUNIZ DO February 04, 2019 15:00
--- NOTE | 2019-02-04 15:34 | RADRPT ---
Vent Rate: 106 bpm RR Interval: 564 msec MN Interval: 150 msec QRS Duration: 79 msec QT Interval: 350 msec QTC Interval: 466 msec P-R-T [place]: 67 - 46 - 53 degrees Sinus tachycardia...rate> 99 Electronically Signed By: Vivek Ivan
[2019-02-04] MEDS ORDERED: ROCURONIUM 50 MG INJ ONE (16:11)
[2019-02-04] MEDS ORDERED: PROPOFOL 20 ML ONE (16:11)
[2019-02-04] MEDS ORDERED: LIDOCAINE 1% (MDV) 20 ML INJ ONE (16:11)
[2019-02-04] MEDS ORDERED: CEFAZOLIN 1 GM INJ ONE (16:26)
[2019-02-04] MEDS ORDERED: ONDANSETRON 4 MG INJ ONE (16:26)
[2019-02-04] MEDS ORDERED: SUGAMMADEX SODIUM 200 MG/2 ML VIAL IV ONE (17:09)
--- NOTE | 2019-02-04 17:21 | OPR ---
Date/Time of Note Date/Time of Note DATE: 02/04/19 TIME: 17:19 Operative Report Procedure Date: February 04, 2019 Preoperative Diagnosis Mediastinal mass Postoperative Diagnosis Mediastinal mass Operation/Procedure Performed Mediastinoscopy and biopsy Surgeon see signature line Clinical Radiologist None Anesthesia Type: general Estimated Blood Loss: minimal Transfusion none Specimen Mediastinal node Grafts/Implants none Complications none Pt Condition Post Procedure: stable Disposition: PACU Indications This is a 64-year-old male with a history of fevers was admitted previously had a CAT scan of the chest which showed a mediastinal mass anterior to the trachea with atelectasis of the lung diagnosis could not be established and we decided to proceed with a mediastinoscopy after discussing the patient with the referring physicians including the police department secretary on the pulmonary service response comp occasions alternative therapies high risk nature of the operation fully explained to the patient and family all questions answered Procedure Description Patient was placed in supine position prepped and draped in usual sterile fashion timeout was called antibiotics was given I made a 2 cm incision 1 fingerbreadth superior to the sternal notch horizontal fashion incision was t aken down to subcutaneous tissue which was then opened using electrocautery the midline raphae was opened in longitudinal fashion pretracheal space was entered using a peanut dissector it was dissected all the way down into anterior to the trachea over the bifurcation of the trachea at the kay Innominate artery and vein were identified and preserved 2 x 2 centimeter lymph node was identified on the right side of the trachea close to the kay which was then biopsied multiple times The frozen section came back no carcinoma at the present time I spoke with the pathologist myself The wound was irrigated and closed in 2 layers of 2-0 Vicryl suture for the midline raphae 2-0 Vicryl sutures of 4 subcu and 3-0 Vicryl suture for running subcuticular skin closure Pathology is pending at the present time as well as Gram stain and cultures LATRELL RUBIO MD February 04, 2019 17:21
--- NOTE | 2019-02-04 17:32 | PAC ---
Date/Time of Note Date/Time of Note DATE: 02/04/19 TIME: 17:31 Post-Anesthesia Notes Post-Anesthesia Note Last documented vital signs Vital Signs Date Temp Pulse Resp B/P (MAP) Pulse Ox O2 O2 Flow FiO2 Time Delivery Rate 02/04/19 98 102 18 113/65 97 Room Air 1733 Activity: WNL Respiratory function: WNL Cardiovascular function: WNL Mental status: Baseline Pain reasonably controlled: Yes Hydration appropriate: Yes Nausea/Vomiting absent: Yes VIOLETA MUNIZ DO February 04, 2019 17:32
[2019-02-04 17:35] VITALS: BP 95/54; PULSE 104; RESP 21
[2019-02-04 17:40] VITALS: BP 119/72; PULSE 102; RESP 21
[2019-02-04 17:45] VITALS: BP 108/70; PULSE 102; RESP 18
== END 2019-02-04 19:00 | disposition home or self-care (01) ==
LOC: SDS 13:21
PROVIDERS: ATTEND Thoracic Surgery (Cardiothoracic Vascular Surgery)
DX: I88.8 Other nonspecific lymphadenitis (principal); Z87.891 Personal history of nicotine dependence
CPT/HCPCS: 39401; 87070; 87075; 87102; 87116; 88307; 88312; 88331; 93005; J0690; J2370; J2405; J3010